=== PATIENT | female | born 1995 | race Hispanic/Latino ===

== ENCOUNTER 2017-02-13 19:09 | Emergency (ER) | payer OTHER ==
[~2017-02-13] VITALS: Ht 157.5 cm; Wt 86.4 kg
[~2017-02-13 19:09] MED LIST: FERR134T5 PO; PREN1TAB69 PO
[2017-02-13 19:43] VITALS: BP 138/98; PULSE 107; RESP 18; O2SAT 99
--- NOTE | 2017-02-13 21:20 | ED.REPORT ---
HPI-General Illness Date of Service Feb 13, 2017 ED Provider: Jair Tatum DO Pt is an otherwise healthy 21 year old female who presents to the ED complaining of vomiting after smoking THC 1 hour prior to arrival. She c/o associated palpitations, anxiety, and paranoia. She denies current nausea, homicidal ideations, suicidal ideation, and any other symptoms. Pt does not know how much she smoked, but stated that she smoked the THC for 2-3 hours. Nursing Notes Stated Complaint: WANTS TO GO TO [place] Chief Complaint: Substance Abuse Nursing Notes Reviewed: Yes Allergies: Coded Allergies: No Known Allergies (Unverified , 02/13/17) Scheduled Ferrous Sulfate-Expunged Drug, Do Not Renew! (Ferrous Sulfate-Expunged Drug, Do Not Renew!) 134 Mg Tablet 134 MG PO DAILY Vit/Fe Fumarate/Fa-Expunged Drug, Do (-Expunged Drug, Do Not Renew!) 1 Each Tablet 1 EACH PO DAILY General Time Seen by MD: 21:19 Chief Complaint Vomiting Hx Obtained From: Patient Arrived By: Walk-in Sudden in Onset?: No Onset Occurred: 1 - 4 hours ago Symptom Duration: Duration unknown Severity: Current: No pain currently Severity: Maximum: No pain Recent Healthcare: No recent doctor visit, No recent hospitalization Similar Sx Previous: No Past Medical History Past Medical History Healthy Past Surgical History Denies Smoking History Unknown if Ever Smoker Social History Alcohol Use: "Social" Drug Use: THC Other Social History: Good social support Ambulatory Status Independent Review of Systems + paranoia Full Review of Systems Cardiovascular: Reports: Palpitations GI: Reports: Nausea (resolved), Vomiting (resolved) Psychiatric: Reports: Anxiety, Denies: Homicidal ideation, Suicidal ideation Complete sys rev & neg: except as marked. Physical Exam Vital Signs Vital Signs Date Time Temp Pulse Resp B/P Pulse Ox O2 Delivery O2 Flow Rate FiO2 02/13/17 22:20 82 16 02/13/17 19:43 37.2 107 18 138/98 99 Room Air Initial VS: Reviewed Head / Eyes: Atraumatic, Normocephalic Neck: Supple, Full range of motion Respiratory: Breath sounds normal, Clear to auscultation, No respiratory distress Cardiovascular: Regular rate & rhythm, Heart sounds normal, Intact distal pulses Extremities: Vascular intact, Neuro intact Skin: Warm, Dry, No cyanosis Neurologic: Alert, Oriented, Nonfocal Psychiatric: Mood/affect normal, Behavior normal General/Constitutional: Awake, Alert Mildy paranoid Interpretation & Diagnostics Lab Results Interpretation Test 02/13/17 20:50 Hold Urine Received (Received) Re-Eval/Medical Decision Med Decision/Clinical Course Healthy 21-year-old smokes marijuana that she became paranoid and anxious. She was observed in the emergency department. The symptoms were off. She was taking friends. Chatting with her mother. She drinks liquids. We will discharge home. No suicidal homicidal ideations. Her mother is to take her home. Time of Eval: 22:16 Re-Evaluation/Progress Note: Pt rechecked. Informed pt of plan for discharge. Pt understands and agrees with plan for discharge. F/U instructions and RTER warnings given. All questions addressed. Counseled Regarding: Diagnosis, Lab results, Need for follow-up, When/why to return to ED Discharge & Departure Primary Impression: Marijuana use Disposition: Home Discharge Condition All VS Reviewed: Yes Condition: Stable Patient Instructions: Cannabis Abuse (ED) Additional Instructions: I recommend abstaining from marijuana use. Do not drive tonight. Stay with a responsible adult. Return to the Emergency Department for any new or concerning symptoms. Referrals: Leo Pan DO (PCP) Scribe Attestation Portions of this note were transcribed by Мария Eaton. I, Dr. Tatum personally performed the history, physical exam and medical decision-making; I reviewed and confirmed the accuracy of the information in the transcribed note. Signed by : Cesar Rosen, 02/13/17. copies to: Leo Pan Todd P DO Feb 13, 2017 21:20 Мария Le Feb 13, 2017 22:02
[2017-02-13 22:20] VITALS: PULSE 82; RESP 16
== END 2017-02-13 22:20 | disposition home or self-care (01) ==
LOC: SED 19:09
DX: F12.90 Cannabis use, unspecified, uncomplicated (principal); F22 Delusional disorders; R00.2 Palpitations; F41.9 Anxiety disorder, unspecified